=== PATIENT | female | born 1965 | race Caucasian/White ===

== ENCOUNTER → 2016-05-20 | Outpatient (CLI) | payer OTHER ==
[2016-05-20 08:41] LABS: BLOOD UREA NITROGEN 11 mg/dL (7-18)
[2016-05-20 08:44] LABS: ASPARTATE AMINO TRANSFERASE 14 U/L (15-37)
== END | disposition home or self-care (01) ==
LOC: LAB 08:00
PROVIDERS: ATTEND Internal Medicine Cardiovascular Disease
DX: E78.4 Other hyperlipidemia (principal)
CPT/HCPCS: 36415; 80053; 80061